=== PATIENT | female | born 1960 | race Caucasian/White ===

== ENCOUNTER → 2018-05-24 | Day surgery (SDC) | payer OTHER, BC ==
--- NOTE | 2018-05-25 10:00 | PATH ---
Surgical Pathology Report Patient Name: KIRIT DOWNEY [facility]. Rec. #: [id number] /Age/Gender: 1960 (Age: 58) / F Account: [id number] Location: [facility] Taken: 05/24/2018 Received: 05/24/2018 Reported: 05/25/2018 Physicians: Ele Yu M.D. Specimen(s) Received A: LEFT BREAST WITH CALCIFICATIONS B: LEFT BREAST WITHOUT CALCIFICATIONS Clinical History Nonpalpable lesion Mammographic findings: Microcalcification, suspicious Final Diagnosis A. 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 B. BREAST, LEFT, WITHOUT CALCIFICATIONS, STEREOTACTIC CORE BIOPSY: BENIGN BREAST PARENCHYMA. Electronically Signed Karen Bojorquez M.D. Gross Description A. Received in formalin labeled "left breast with calcifications," is a 3.5 x 2.5 x 0.3 cm aggregate of multiple gould-yellow, irregular to cylindrical portions of fibroadipose tissue. The formalin is filtered and the specimen is entirely submitted in one cassette. B. Received in formalin labeled "left breast without calcifications," is a 1.5 x 1.5 x 0.3 cm aggregate of gould-yellow, irregular to cylindrical portions of fibroadipose tissue. The formalin is filtered and the specimen is entirely submitted in one cassette. Time to formalin fixation: 5 minutes Total formalin fixation time: Approximately 6 hours. 05/24/201805/24/2018
== END | disposition home or self-care (01) ==
LOC: FMAMMOTONE 10:09
PROVIDERS: ATTEND Surgery Surgical Oncology
PROC: 0HBU3ZX Excision of Left Breast, Percutaneous Approach, Diagnostic (ICD-10-PCS; principal; 2018-05-24)
DX: N64.89 Other specified disorders of breast (principal); R92.1 Mammographic calcification found on diagnostic imaging of breast
CPT/HCPCS: 19081; 88305-TC